=== PATIENT | male | born 1950 | race Caucasian/White ===

== ENCOUNTER 2016-09-09 09:46 | Emergency (ER) | payer MEDICARE ==
[~2016-09-09] VITALS: Ht 182.9 cm; Wt 65.8 kg
[2016-09-09] MEDS ORDERED: NO MEDICATIONS (10:05)
== END 2016-09-09 10:32 | disposition home or self-care (01) ==
LOC: SED 09:46
DX: R21 Rash and other nonspecific skin eruption (principal); F17.210 Nicotine dependence, cigarettes, uncomplicated; Z98.890 Other specified postprocedural states
CPT/HCPCS: 99282